=== PATIENT | male | born 1995 | race Caucasian/White ===

== ENCOUNTER 2016-08-19 16:49 | Emergency (ER) | payer OTHER ==
[2016-08-19 17:03] VITALS: BP 110/75; PULSE 99; TEMP 99; BMI 23.7
[2016-08-19] MEDS ORDERED: IBUPROFEN 600 MG TABLET (FP) PO ONE ×2 (17:27→17:28)
--- NOTE | 2016-08-19 17:40 | PDOC ---
History of Present Illness - General History Source: Patient Exam Limitations: No Limitations - History of Present Illness Initial Comments: 08/19/16 17:40 The patient is a 21 year old male with no significant past medical history who present to the ED with complaints of right foot injury earlier today. The patient reports he was playing basketball when he tripped and fell onto his right ankle. He states he heard a pop in this ankle secondary to falling. Reports pain, swelling, and redness in the right ankle. Denies fevers or chills. Denies head injury or headache. Denies focal numbness, weakness, or tingling. Denies any other symptoms. Surgical hx: Chest cosmetic surgery (skin removal) <Russ Martin - Last Filed: 08/19/16 17:40> <Adarsh Bonner - Last Filed: 08/31/16 07:37> - General Chief Complaint: Injury Stated Complaint: RT ANKL PAIN Time Seen by Provider: 08/19/16 16:58 Past History <Russ Martin - Last Filed: 08/19/16 17:40> - Past Medical History Other medical history: DENIES - Psycho/Social/Smoking Cessation Hx Anxiety: No Suicidal Ideation: No Smoking History: Never smoked Have you smoked in the past 12 months: No Information on smoking cessation initiated: No Hx Alcohol Use: No Drug/Substance Use Hx: No Substance Use Type: None <Adarsh Bonner - Last Filed: 08/31/16 07:37> - Past Medical History Allergies/Adverse Reactions: Allergies Allergy/AdvReac Type Severity Reaction Status Date / Time No Known Allergies Allergy Verified 08/19/16 16:50 Home Medications: Ambulatory Orders NK [No Known Home Medication] 08/19/16 Review of Systems - Review of Systems Able to Perform ROS?: Yes Comments:: 08/19/16 17:40 CONSTITUTIONAL: No reported: Fever, Chills, Diaphoresis, Generalized Weakness, Malaise, Loss of Appetite HEENT: No reported: Rhinorrhea, Nasal Congestion, Throat Pain, Throat Swelling, Difficulty Swallowing, Mouth Swelling, Ear Pain, Eye Pain, Visual Changes CARDIOVASCULAR: No reported: Chest Pain, Syncope, Palpitations, Irregular Heart Rate, Lightheadedness, Peripheral Edema RESPIRATORY: No reported: Cough, Shortness of Breath, SOB with Exertion, Orthopnea, Wheezing , Stridor, Hemoptysis GASTROINTESTINAL: No reported: Abdominal pain, Abdominal Distension, Nausea, Vomiting, Diarrhea, Constipation, Melena, Hematochezia GENITOURINARY: No reported: Dysuria, Frequency, Urgency, Hesitancy, Flank Pain, Genital Pain MUSCULOSKELETAL: + right ankle injury No reported: Joint Swelling, Back pain, Neck Pain SKIN: No reported: Rash, Itching, Pallor HEMEATOLOGIC/IMMUNOLOGIC: No reported: Easy Bleeding, Easy Bruising, Lymphadenopathy, Frequent infections ENDOCRINE: No reported: Unexplained Weight Gain, Unexplained Weight Loss, Heat Intolerance , Cold Intolerance NEUROLOGIC: No reported: Headache, Focal Weakness, Paresthesias, Vertigo, Lightheadedness, Unsteady Gait, Seizure, Mental Status Changes, Incontinence PSYCHIATRIC: No reported: Anxiety, Depression All Other Systems: Reviewed and Negative <Russ Martin - Last Filed: 08/19/16 17:40> *Physical Exam - Vital Signs Last Vital Signs Temp Pulse Resp BP Pulse Ox 99 F 99 H 20 110/75 99 08/19/16 16:50 08/19/16 16:50 08/19/16 16:50 08/19/16 16:50 08/19/16 16:50 - Physical Exam Comments: 08/19/16 17:40 GENERAL: Well developed, well nourished. Awake and alert. No acute distress. HEENT: Normocephalic, atraumatic. PERRLA, EOMI. No conjunctival pallor. Sclera are non- icteric. Moist mucous membranes. Oropharynx is clear. NECK: Supple. Full ROM. No JVD. Carotid pulses 2+ and symmetric, without bruits. No thyromegaly. No lymphadenopathy. CARDIOVASCULAR: Regular rate and rhythm. No murmurs, rubs, or gallops. Distal pulses are 2+ and symmetric. PULMONARY: No evidence of respiratory distress. Lungs clear to auscultation bilaterally. No wheezing, rales or rhonchi. ABDOMINAL: Soft. Non-tender. Non-distended. No rebound or guarding. No organomegaly. Normoactive bowel sounds. MUSCULOSKELETAL Normal range of motion at all joints. No bony deformities or tenderness. No CVA tenderness. EXTREMITIES: + moderate swelling of the anterior lateral ankle ligament, no deformity or instability. no point tenderness of the molliali or the 5th metatarsal. mild to moderate tenderness over the medial ligaments as well without appreciable swelling, pulses full, no distal sensory or motor deficits, no visible or palpable trauma to foot, calf, knee, or thigh SKIN: Warm and dry. Normal capillary refill. No rashes. No jaundice. NEUROLOGICAL: Alert, awake, appropriate. Cranial nerves 2-12 intact. No deficits to light touch and temperature in face, upper extremities and lower extremities. No motor deficits in the in face, upper extremities and lower extremities. Normoreflexic in the upper and lower extremities. Normal speech. Toes are down- going bilaterally. Gait is normal without ataxia. PSYCHIATRIC: Cooperative. Good eye contact. Appropriate mood and affect. <Russ Martin - Last Filed: 08/19/16 17:40> - Vital Signs Last Vital Signs Temp Pulse Resp BP Pulse Ox 99 F 99 H 20 110/75 99 08/19/16 16:50 08/19/16 16:50 08/19/16 16:50 08/19/16 16:50 08/19/16 16:50 <Adarsh Bonner - Last Filed: 08/31/16 07:37> ED Treatment Course - RADIOLOGY Radiograph Interpretation: 08/19/16 17:40 RAD/ANKLE-RIGHT Impression: No fracture or acute pathology. Reported by: Emir Hector - Medications Given in the ED: ED Medications Discontinued Medications Generic Name Dose Route Start Last Admin Trade Name Freq PRN Reason Stop Dose Admin Ibuprofen 600 mg 08/19/16 17:27 08/19/16 17:27 Motrin - PO 08/19/16 17:28 600 mg NOW ONE Administration <Russ Martin - Last Filed: 08/19/16 17:40> - RADIOLOGY Radiology Studies Ordered: Category Date Time Status ANKLE-RIGHT [RAD] Stat Radiology 08/19/16 16:58 Completed - Medications Given in the ED: ED Medications Discontinued Medications Generic Name Dose Route Start Last Admin Trade Name Freq PRN Reason Stop Dose Admin Ibuprofen 600 mg 08/19/16 17:27 08/19/16 17:27 Motrin - PO 08/19/16 17:28 600 mg NOW ONE Administration <Adarsh Bonner - Last Filed: 08/31/16 07:37> Medical Decision Making - Medical Decision Making 08/31/16 07:36 X-ray negative for fracture. Good ankle mortise. Aircast was applied, crutches were fitted and instructions were given. He was given instructions to follow-up with orthopedist in one week. Encouraged partial weightbearing once the pain had improved, to avoid muscle atrophy. He and his mother seemed to understand the nature of the injury, the instructions, and will follow up as needed. <Adarsh Bonner - Last Filed: 08/31/16 07:37> *DC/Admit/Observation/Transfer - Attestations Scribe Attestion: 08/19/16 17:42 Documentation prepared by Russ Martin, acting as medical technicians for Adarsh Cedillo MD <Russ Martin - Last Filed: 08/19/16 17:40> - Discharge Dispostion Admit: No <Adarsh Bonner - Last Filed: 08/31/16 07:37> Diagnosis at time of Disposition: Ankle sprain Qualifiers: Encounter type: initial encounter Involved ligament of ankle: tibiofibular ligament Laterality: right Qualified Code(s): S93.431A - Sprain of tibiofibular ligament of right ankle, initial encounter - Discharge Dispostion Disposition: HOME Condition at time of disposition: Improved - Referrals Referrals: Jose Armando Milan MD [Staff Physician] - 1 week - Patient Instructions Printed Discharge Instructions: DI for Ankle Sprain, How to Apply an Rudy Wrap, How to Use Crutches Additional Instructions: Rest ice elevation and Motrin Use crutches only for 2 or 3 days to avoid muscle deterioration, start bearing weight using the splint as directed as soon as possible. See orthopedist if no improvement or if symptoms persist in one week.
== END 2016-08-19 17:56 | disposition home or self-care (01) ==
LOC: FER 16:49
PROC: 2W3SX1Z Immobilization of Right Foot using Splint (ICD-10-PCS; principal; 2016-08-19)
DX: S93.431A Sprain of tibiofibular ligament of right ankle, initial encounter (principal); W18.30XA Fall on same level, unspecified, initial encounter; Y93.67 Activity, basketball; Y92.310 Basketball court as the place of occurrence of the external cause
CPT/HCPCS: 73610-TC-RT; 99282-25